=== PATIENT | male | born 1995 | race Caucasian/White ===

== ENCOUNTER → 2018-04-17 | Emergency (ER) | payer BC ==
[~2018-04-17] VITALS: Ht 172.7 cm; Wt 65.9 kg
[~2018-04-17] MED LIST: AMOXICILLIN 50500 MG PO; CEPHALEXIN500 M1 PO; CLARITIN 1010 MG/TAB PO; MELATONIN5 M1 PO; NO HOME MEDICATIONS; NORCO 325 MG-51 TAB PO; PREVACID 30MG30 M1 PO
[2018-04-17 20:39] VITALS: BP 119/58
[2018-04-17 23:20] VITALS: TEMP 97.8
[2018-04-18] VITALS: PULSE 109
[2018-04-18 14:52] LABS: COLLECTION METHOD CLEAN CATCH
[2018-04-18 15:23] LABS: ALBUMIN 3.8 gm/dL (3.5-5.0); BILIRUBIN,TOTAL 1.8 mg/dL (0.0-1.0); CALCIUM 8.7 mg/dL (8.4-10.2); CREATININE, serum 0.89 mg/dL (0.66-1.25); POTASSIUM 3.8 mmol/L (3.4-5.0); TOTAL PROTEIN 6.4 gm/dL (6.4-8.2)
[2018-04-18 16:13] LABS: BASO # 0.1 (0.0-0.2); BASO % 1.5 % (0.0-2.0); GRAN # 2.7 (1.4-6.5); HEMATOCRIT 44.5 % (42.0-52.0); HEMOGLOBIN 15.6 g/dl (13.5-18.0); LYMPH # 0.6 (1.2-3.4); LYMPH % 16.4 % (20.0-51.0); MEAN CELL VOLUME 83 fl (80.0-100.0); MEAN CORPUSCULAR HEMOGLOBIN 29 pg (27.0-31.0); MEAN CORPUSCULAR HGB CONC 35 g/dl (33.0-37.0); MEAN PLATELET VOLUME 12.8 fl (7.4-10.4); MONO # 0.5 (0.1-0.6); MONO % 11.8 % (1.7-9.3); PLATELET COUNT 98 K/mm3 (130-400); RED BLOOD COUNT 5.39 M/mm3 (4.20-5.60); REDCELL DISTRIBUTION WIDTH-CV 12.2 % (11.5-14.5)
[2018-04-18 22:40] LABS: MUCOUS Present /lpf; SQUAMOUS EPITHELIAL 0-2 /hpf; URINE BACTERIA None Seen /hpf
[2018-04-18 22:52] LABS: PH 6 (5-8); URINE APPEARANCE Clear; URINE BILIRUBIN Negative (NEGATIVE); URINE BLOOD 1+ (NEGATIVE); URINE COLOR Amber; URINE GLUCOSE Negative (NEGATIVE); URINE KETONE Trace (NEGATIVE); URINE LEUKOCYTE ESTERASE Negative (NEGATIVE); URINE NITRATE Negative (NEGATIVE); URINE PROTEIN(semi-quant) 1+ (NEGATIVE); URINE UROBILINOGEN >=4.0 mg/dL (NEGATIVE)
== END ==
LOC: COL.ER 20:35
PROVIDERS: Emergency Medicine
DX: B34.9 Viral infection, unspecified (principal); K21.9 Gastro-esophageal reflux disease without esophagitis; K29.70 Gastritis, unspecified, without bleeding
CPT/HCPCS: J2765; J3010; J7030